=== PATIENT | male | born 1955 | race Hispanic/Latino ===

== ENCOUNTER 2017-03-17 10:32 | Emergency (ER) | payer MEDICAID ==
[2017-03-17 12:19] VITALS: BP 107/59
[2017-03-17] MEDS ORDERED: DUONEB *Not for PRN Use IH ONE (12:26)
--- NOTE | 2017-03-17 12:31 | Emergency Department Report ---
Chief Complaint: Upper Respiratory Infection Stated Complaint: FLU LIKE SYMPTOMS Time Seen by Provider: 03/17/17 12:28 - HPI History of Present Illness: Patient with H/O COPD presents to ED with c/o productive cough, post-tussive emesis, SOB, wheezing, subjective fevers, body aches and weakness for the past 5 days; hasn't had his inhalers in years, denies being on home oxygen; current smoker; denies CP - ROS Review of Systems: Negative except for those stated in HPI - Exam Vital Signs: Vital Signs 03/17/17 12:16 Temperature 99 F Pulse Rate 98 H Respiratory 24 Rate Blood Pressure 107/59 O2 Sat by Pulse 91 Oximetry Physical Exam: NAD RRR Bilateral inspiratory and expiratory wheezes present MSE screening note: Focused history and physical exam performed. Due to findings the following was ordered: CXR, bloodwork Patient to be seen by provider in Main ED ED Disposition for MSE Condition: Stable
[2017-03-17 12:42] LABS: Basophils % (Auto) 0.4 % (0.0-1.8); Eosinophils % (Auto) 0.9 % (0.0-4.3); Hematocrit 43.5 % (35.5-45.6); Hemoglobin 14.6 gm/dl (11.8-15.2); Mean Corpuscular HGB Conc 34 % (32-34); Mean Corpuscular Hemoglobin 32 pg (28-32); Mean Corpuscular Volume 94 fl (84-94); Platelet Count 228 K/mm3 (140-440); Red Blood Count 4.61 M/mm3 (3.65-5.03); Red Cell Distribution Width 13.6 % (13.2-15.2); White Blood Count 13.6 K/mm3 (4.5-11.0)
--- NOTE | 2017-03-17 12:50 | XRay Report ---
ROUTINE CHEST, TWO VIEWS: HISTORY: Short of breath. The trachea, heart, mediastinal contour, lung wetzel and bony thorax are unremarkable. IMPRESSION: Unremarkable chest x-ray.
[2017-03-17 13:06] LABS: Anion Gap 20 mmol/L; BUN/Creatinine Ratio 13; Blood Urea Nitrogen 10 mg/dL (9-20); Calcium 8.9 mg/dL (8.4-10.2); Carbon Dioxide 23 mmol/L (22-30); Chloride 97.9 mmol/L (98-107); Glucose 138 mg/dL (75-100); Potassium 4.2 mmol/L (3.6-5.0); Sodium 137 mmol/L (137-145)
== END 2017-03-17 12:30 ==
LOC: ED 10:32
DX: J11.1 Influenza due to unidentified influenza virus with other respiratory manifestations (principal); Z53.21 Procedure and treatment not carried out due to patient leaving prior to being seen by health care provider
CPT/HCPCS: 36415; 71020; 80048; 82140; 85025; 87040

== ENCOUNTER 2017-03-20 06:34 | Inpatient (IN) | payer MEDICAID ==
[2017-03-20] MEDS ORDERED: MAGNESIUM SULFATE 2GM/50ML 2 GM/50 ML BAG IV ONE (06:39)
[2017-03-20] MEDS ORDERED: NACL 0.9% 500 ML 500 ML IV ONE (06:39)
[2017-03-20] MEDS ORDERED: PROVENTIL IH ONE (06:39)
[2017-03-20] MEDS ORDERED: ATROVENT IH ONE (06:39)
--- NOTE | 2017-03-20 06:41 | Emergency Department Report ---
ED General Adult HPI - General Chief complaint: Dyspnea/Respdistress Stated complaint: COPD/TYLER Time Seen by Provider: 03/20/17 06:38 Source: patient, EMS (ems notes not available at time of chart dictation), RN notes reviewed, old records reviewed Mode of arrival: Stretcher Limitations: Physical Limitation - History of Present Illness Initial comments: This is a 61-year-old male with a probable history of COPD, who is brought to the hospital via EMS for probable COPD exacerbation. EMS reported that they gave Solu-Medrol, nitroglycerin in the field, however his IV infiltrated. They also started the patient on BiPAP. Upon arrival to the ER, the patient was in severe respiratory distress, and tripoding. He was continued on BiPAP therapy, given addition 10 mg of albuterol, 1 mg of Atrovent, 2 g of magnesium sulfate, 125 mg of Solu-Medrol. Patient also given epinephrine, 0.3 mg subcutaneously, 1:1000 concentration. His symptoms dramatically improved, he was able to be weaned off of the BiPAP, and transition to a Venturi mask. He denies headache, neck pain, chest pain, abdominal pain, he denies pulmonary embolus and DVT risk factors. Case was presented to the [facility]; she graciously accepted the patient to the medical service. -: Gradual Consistency: constant Improves with: medication Worsens with: movement Associated Symptoms: cough, loss of appetite, malaise, shortness of breath, weakness - Related Data Home Medications Medication Instructions Recorded Confirmed Last Taken No Known Home Medications [No 01/02/16 01/02/16 Unknown Reported Home Medications] Allergies Allergy/AdvReac Type Severity Reaction Status Date / Time Penicillins Allergy Hives Verified 01/02/16 13:56 ED Review of Systems ROS: Stated complaint: COPD/TYLER Other details as noted in HPI Comment: Unobtainable due to pts medical conditions ED Past Medical Hx - Past Medical History Hx COPD: Yes Additional medical history: GUILLAIN BARRE - Surgical History Additional Surgical History: RIGHT KNEE - Social History Smoking Status: Current Every Day Smoker Substance Use Type: None - Medications Home Medications: Home Medications Medication Instructions Recorded Confirmed Last Taken Type No Known Home Medications [No 01/02/16 01/02/16 Unknown History Reported Home Medications] ED Physical Exam - General General appearance: alert, in distress - Head Head exam: Present: atraumatic, normocephalic - Eye Eye exam: Present: normal appearance - ENT ENT exam: Present: normal exam, normal orophraynx, mucous membranes moist - Neck Neck exam: Present: normal inspection - Respiratory Respiratory exam: Present: respiratory distress, wheezes, rales, rhonchi - Cardiovascular Cardiovascular Exam: Present: regular rate, normal rhythm, normal heart sounds. Absent: systolic murmur, diastolic murmur, rubs, gallop - GI/Abdominal GI/Abdominal exam: Present: soft, normal bowel sounds. Absent: distended, tenderness, guarding, rebound, rigid, pulsatile mass - Rectal Rectal exam: Present: deferred - Extremities Exam Extremities exam: Present: normal inspection, full ROM, normal capillary refill. Absent: pedal edema, joint swelling, calf tenderness - Back Exam Back exam: Present: normal inspection, full ROM. Absent: tenderness, CVA tenderness (R), paraspinal tenderness, vertebral tenderness - Neurological Exam Neurological exam: Present: alert, other (Extraocular movements intact. Tongue midline. No facial droop. Facial sensation intact to light touch in the V1, V2 , V3 distribution bilaterally. 5 and 5 strength in 4 extremities.. Sensation is intact to light touch in 4 extremities.). Absent: motor sensory deficit - Psychiatric Psychiatric exam: Present: anxious - Skin Skin exam: Present: warm, dry, intact, normal color. Absent: rash ED Course Vital Signs 03/20/17 03/20/17 03/20/17 06:40 06:54 07:00 Temperature Pulse Rate 79 Pulse Rate [ Anterior Bilateral Throughout] Respiratory 24 20 Rate Respiratory Rate [Anterior Bilateral Throughout] Blood Pressure 125/69 125/69 O2 Sat by Pulse 96 96 98 Oximetry 03/20/17 03/20/17 03/20/17 07:10 08:00 08:23 Temperature 97.9 F Pulse Rate 74 73 Pulse Rate [ 75 Anterior Bilateral Throughout] Respiratory 30 H 20 Rate Respiratory 19 Rate [Anterior Bilateral Throughout] Blood Pressure 125/69 104/45 O2 Sat by Pulse 97 98 Oximetry - Reevaluation(s) Reevaluation #1: 03/20/17 09:14 Patient reassessed multiple times while in the department, his work of breathing improved, and his tripoding improved. ED Medical Decision Making - Lab Data Result diagrams: 03/20/17 06:50 03/20/17 06:50 Vital Signs 03/20/17 03/20/17 03/20/17 06:40 06:54 07:00 Temperature Pulse Rate 79 Pulse Rate [ Anterior Bilateral Throughout] Respiratory 24 20 Rate Respiratory Rate [Anterior Bilateral Throughout] Blood Pressure 125/69 125/69 O2 Sat by Pulse 96 96 98 Oximetry 03/20/17 03/20/17 03/20/17 07:10 08:00 08:23 Temperature 97.9 F Pulse Rate 74 73 Pulse Rate [ 75 Anterior Bilateral Throughout] Respiratory 30 H 20 Rate Respiratory 19 Rate [Anterior Bilateral Throughout] Blood Pressure 125/69 104/45 O2 Sat by Pulse 97 98 Oximetry Lab Results 03/20/17 03/20/17 03/20/17 Range/Units 06:50 06:50 06:50 WBC 12.1 H (4.5-11.0) K/mm3 RBC 4.27 (3.65-5.03) M/mm3 Hgb 13.4 (11.8-15.2) gm/dl Hct 39.6 (35.5-45.6) % MCV 93 (84-94) fl MCH 31 (28-32) pg MCHC 34 (32-34) % RDW 13.6 (13.2-15.2) % Plt Count 285 (140-440) K/mm3 Lymph % (Auto) 14.3 (13.4-35.0) % [place] % (Auto) 12.2 H (0.0-7.3) % Eos % (Auto) 1.9 (0.0-4.3) % Baso % (Auto) 0.2 (0.0-1.8) % Lymph # 1.7 (1.2-5.4) K/mm3 [place] # 1.5 H (0.0-0.8) K/mm3 Eos # 0.2 (0.0-0.4) K/mm3 Baso # 0.0 (0.0-0.1) K/mm3 Seg Neutrophils % 71.4 H (40.0-70.0) % Seg Neutrophils # 8.7 H (1.8-7.7) K/mm3 PT 13.3 (12.2-14.9) Sec. INR 0.96 (0.87-1.13) APTT 34.1 (24.2-36.6) Sec. POC ABG pH (7.35-7.45) POC ABG pCO2 (35-45) POC ABG pO2 (80-105) POC ABG HCO3 POC ABG Total CO2 POC ABG O2 Sat POC ABG Base Excess FiO2 % Sodium 144 D (137-145) mmol/L Potassium 4.1 (3.6-5.0) mmol/L Chloride 103.8 (98-107) mmol/L Carbon Dioxide 26 (22-30) mmol/L Anion Gap 18 mmol/L BUN 15 (9-20) mg/dL Creatinine 0.9 (0.8-1.5) mg/dL Estimated GFR > 60 ml/min BUN/Creatinine Ratio 17 % Glucose 136 H (75-100) mg/dL Lactic Acid (0.7-2.0) mmol/L Calcium 8.6 (8.4-10.2) mg/dL Magnesium 2.10 (1.7-2.3) mg/dL Total Bilirubin 0.30 (0.1-1.2) mg/dL AST 41 H (5-40) units/L ALT 71 H (7-56) units/L Alkaline Phosphatase 152 H (35-129) units/L Total Protein 6.8 (6.3-8.2) g/dL Albumin 3.2 L (3.9-5) g/dL Albumin/Globulin Ratio 0.9 % 03/20/17 03/20/17 Range/Units 06:50 08:10 WBC (4.5-11.0) K/mm3 RBC (3.65-5.03) M/mm3 Hgb (11.8-15.2) gm/dl Hct (35.5-45.6) % MCV (84-94) fl MCH (28-32) pg MCHC (32-34) % RDW (13.2-15.2) % Plt Count (140-440) K/mm3 Lymph % (Auto) (13.4-35.0) % [place] % (Auto) (0.0-7.3) % Eos % (Auto) (0.0-4.3) % Baso % (Auto) (0.0-1.8) % Lymph # (1.2-5.4) K/mm3 [place] # (0.0-0.8) K/mm3 Eos # (0.0-0.4) K/mm3 Baso # (0.0-0.1) K/mm3 Seg Neutrophils % (40.0-70.0) % Seg Neutrophils # (1.8-7.7) K/mm3 PT (12.2-14.9) Sec. INR (0.87-1.13) APTT (24.2-36.6) Sec. POC ABG pH 7.362 (7.35-7.45) POC ABG pCO2 47.0 H (35-45) POC ABG pO2 160 H (80-105) POC ABG HCO3 26.7 POC ABG Total CO2 28 POC ABG O2 Sat 99 POC ABG Base Excess 1 FiO2 45 % Sodium (137-145) mmol/L Potassium (3.6-5.0) mmol/L Chloride (98-107) mmol/L Carbon Dioxide (22-30) mmol/L Anion Gap mmol/L BUN (9-20) mg/dL Creatinine (0.8-1.5) mg/dL Estimated GFR ml/min BUN/Creatinine Ratio % Glucose (75-100) mg/dL Lactic Acid 1.50 (0.7-2.0) mmol/L Calcium (8.4-10.2) mg/dL Magnesium (1.7-2.3) mg/dL Total Bilirubin (0.1-1.2) mg/dL AST (5-40) units/L ALT (7-56) units/L Alkaline Phosphatase (35-129) units/L Total Protein (6.3-8.2) g/dL Albumin (3.9-5) g/dL Albumin/Globulin Ratio % - EKG Data EKG shows normal: sinus rhythm Rate: normal - EKG Data 03/20/17 09:13 Sinus, 84 bpm, normal axis, QTC prolonged, abnormal EKG, motion artifact, not morphologically consistent with ST elevation myocardial infarction, borderline left ventricular hypertrophy. - Radiology Data Radiology results: report reviewed, image reviewed X-ray the chest is negative for acute disease Critical Care Time: Yes Critical care time in (mins) excluding proc time.: 35 Critical care attestation.: If time is entered above; I have spent that time in minutes in the direct care of this critically ill patient, excluding procedure time. ED Disposition Clinical Impression: COPD exacerbation Disposition: DC-[id number] OP ADMIT IP TO THIS HOSP Is pt being admited?: Yes Condition: Good Instructions: Chronic Bronchitis (ED)
[2017-03-20] MEDS ORDERED: ADRENALINE P/F SUB-Q ONE (06:43)
[2017-03-20] MEDS ORDERED: LEVAQUIN 750MG/150ML 750 MG/150 ML BAG IV ONE (06:44)
--- NOTE | 2017-03-20 07:04 | XRay Report ---
FINAL REPORT EXAM: XR CHEST 1V AP HISTORY: Dyspnea TECHNIQUE: A portable upright view of the chest was submitted. There are no previous studies available for comparison. FINDINGS: Heart size and mediastinum appear normal. There are no localized infiltrates or effusions. The lungs are not overtly congested. There are EKG leads overlying the chest wall. The bones and soft tissues do not show any acute changes. IMPRESSION: No active chest disease.
[2017-03-20 07:15] LABS: Basophils % (Auto) 0.2 % (0.0-1.8); Eosinophils % (Auto) 1.9 % (0.0-4.3); Hematocrit 39.6 % (35.5-45.6); Hemoglobin 13.4 gm/dl (11.8-15.2); Mean Corpuscular HGB Conc 34 % (32-34); Mean Corpuscular Hemoglobin 31 pg (28-32); Mean Corpuscular Volume 93 fl (84-94); Platelet Count 285 K/mm3 (140-440); Red Blood Count 4.27 M/mm3 (3.65-5.03); Red Cell Distribution Width 13.6 % (13.2-15.2); White Blood Count 12.1 K/mm3 (4.5-11.0)
[2017-03-20 07:23] LABS: INR 0.96 (0.87-1.13)
[2017-03-20 07:24] LABS: Partial Thromboplastin Time 34.1 Sec. (24.2-36.6)
[2017-03-20 07:28] LABS: Alanine Aminotransferase 71 units/L (7-56); Albumin 3.2 g/dL (3.9-5); Albumin/Globulin Ratio 0.9 %; Alkaline Phosphatase 152 units/L (35-129); Anion Gap 18 mmol/L; BUN/Creatinine Ratio 17; Blood Urea Nitrogen 15 mg/dL (9-20); Calcium 8.6 mg/dL (8.4-10.2); Carbon Dioxide 26 mmol/L (22-30); Chloride 103.8 mmol/L (98-107); Glucose 136 mg/dL (75-100); Potassium 4.1 mmol/L (3.6-5.0); Sodium 144 mmol/L (137-145); Total Protein 6.8 g/dL (6.3-8.2)
[2017-03-20 08:14] LABS: ISTAT Base Excess 1; ISTAT HCO3 26.7; ISTAT PH 7.362 (7.35-7.45); ISTAT PO2 160 (80-105); ISTAT SO2 99; ISTAT TCO2 28
[2017-03-20] MEDS ORDERED: DULCOLAX PR PRN (09:17)
[2017-03-20] MEDS ORDERED: TYLENOL PO PRN (09:17)
[2017-03-20] MEDS ORDERED: PROVENTIL IH PRN (09:17)
--- NOTE | 2017-03-20 09:21 | History and Physical Report ---
<MARITZA DONAHUE - Last Filed: 03/20/17 15:05> History of Present Illness Date of examination: 03/20/17 Date of admission: 03/20/2017 Chief complaint: COPD exacerbation History of present illness: Patient is a 61 years old male with past medical history of COPD and Guillain barre who brought to the hospital by EMS for respiratory distress. Patient currently on continues BiPAP therefore unable to obtain detail history. Per physician and charts came to the Ed with patient was in severe respiratory distress, and tripoding unable. Patient found to have COPD exacerbation unable to protect his airway and placed on BiPAP.He is not on oxygen at home. No report of fevers, chills, or night sweats. No hx of recurrent pneumonia. He has no sick contact, TB exposure. Past History Past Medical History: COPD, other (Guillain barre ) Past Surgical History: Other (right knee) Social history: smoking, other (unable to obtain due to patient on continuous BiPAP). denies: alcohol abuse Family history: other (unable to obtain due to patient on continuous BiPAP) Medications and Allergies Allergies Allergy/AdvReac Type Severity Reaction Status Date / Time Penicillins Allergy Hives Verified 01/02/16 13:56 Home Medications Medication Instructions Recorded Confirmed Last Taken Type No Known Home Medications [No 01/02/16 03/20/17 Unknown History Reported Home Medications] Active Meds: Active Medications Acetaminophen (Tylenol) 650 mg PO Q4H PRN PRN Reason: Pain MILD(1-3)/Fever >100.5/PORTILLO Albuterol (Proventil) 2.5 mg IH Q4HRT PRN PRN Reason: Shortness Of Breath Albuterol/Ipratropium (Duoneb *Not For Prn Use*) 1 ampul IH Q6HRT [facility] Bisacodyl (Dulcolax) 10 mg CA QDAY PRN PRN Reason: Constipation unrelieved by MOM Enoxaparin Sodium (Lovenox) 40 mg SUB-Q QDAY [facility] Levofloxacin/Dextrose (Levaquin 750mg/150ml) 750 mg in 150 mls @ 100 mls/hr IV Q24HR TAYA PRN Reason: Protocol Methylprednisolone Sodium Succinate (Solu-Medrol) 80 mg IV Q8HR TAYA Review of Systems ROS unobtainable: due to mental status (unable to obtain due to patient on continuous BiPAP) Constitutional: weight loss Exam - Constitutional Vitals: Temp Pulse Resp BP Pulse Ox 97.9 F 75 19 104/45 98 03/20/17 07:10 03/20/17 08:23 03/20/17 08:23 03/20/17 08:00 03/20/17 08:00 General appearance: Present: no acute distress, other (On continuous BiPAP 45% with SPO2 >95) - EENT Eyes: Present: PERRL ENT: hearing intact - Neck Neck: Present: supple - Respiratory Respiratory effort: normal Respiratory: bilateral: rales, wheezing - Cardiovascular Rhythm: regular Heart Sounds: Present: S1 & S2 - Abdominal General gastrointestinal: Present: soft, non-tender - Musculoskeletal Musculoskeletal: strength equal bilaterally - Psychiatric Psychiatric: appropriate mood/affect - Neurologic Neurologic: moves all extremities - Allied Health Allied health notes reviewed: nursing Results - Labs CBC & Chem 7: 03/20/17 06:50 03/20/17 06:50 Labs: Laboratory Last Values WBC 12.1 K/mm3 (4.5-11.0) H 03/20/17 06:50 RBC 4.27 M/mm3 (3.65-5.03) 03/20/17 06:50 Hgb 13.4 gm/dl (11.8-15.2) 03/20/17 06:50 Hct 39.6 % (35.5-45.6) 03/20/17 06:50 MCV 93 fl (84-94) 03/20/17 06:50 MCH 31 pg (28-32) 03/20/17 06:50 MCHC 34 % (32-34) 03/20/17 06:50 RDW 13.6 % (13.2-15.2) 03/20/17 06:50 Plt Count 285 K/mm3 (140-440) 03/20/17 06:50 Lymph % (Auto) 14.3 % (13.4-35.0) 03/20/17 06:50 [place] % (Auto) 12.2 % (0.0-7.3) H 03/20/17 06:50 Eos % (Auto) 1.9 % (0.0-4.3) 03/20/17 06:50 Baso % (Auto) 0.2 % (0.0-1.8) 03/20/17 06:50 Lymph # 1.7 K/mm3 (1.2-5.4) 03/20/17 06:50 [place] # 1.5 K/mm3 (0.0-0.8) H 03/20/17 06:50 Eos # 0.2 K/mm3 (0.0-0.4) 03/20/17 06:50 Baso # 0.0 K/mm3 (0.0-0.1) 03/20/17 06:50 Seg Neutrophils % 71.4 % (40.0-70.0) H 03/20/17 06:50 Seg Neutrophils # 8.7 K/mm3 (1.8-7.7) H 03/20/17 06:50 PT 13.3 Sec. (12.2-14.9) 03/20/17 06:50 INR 0.96 (0.87-1.13) 03/20/17 06:50 APTT 34.1 Sec. (24.2-36.6) 03/20/17 06:50 POC ABG pH 7.362 (7.35-7.45) 03/20/17 08:10 POC ABG pCO2 47.0 (35-45) H 03/20/17 08:10 POC ABG pO2 160 (80-105) H 03/20/17 08:10 POC ABG HCO3 26.7 03/20/17 08:10 POC ABG Total CO2 28 03/20/17 08:10 POC ABG O2 Sat 99 03/20/17 08:10 POC ABG Base Excess 1 03/20/17 08:10 FiO2 45 % 03/20/17 08:10 Sodium 144 mmol/L (137-145) D 03/20/17 06:50 Potassium 4.1 mmol/L (3.6-5.0) 03/20/17 06:50 Chloride 103.8 mmol/L (98-107) 03/20/17 06:50 Carbon Dioxide 26 mmol/L (22-30) 03/20/17 06:50 Anion Gap 18 mmol/L 03/20/17 06:50 BUN 15 mg/dL (9-20) 03/20/17 06:50 Creatinine 0.9 mg/dL (0.8-1.5) 03/20/17 06:50 Estimated GFR > 60 ml/min 03/20/17 06:50 BUN/Creatinine Ratio 17 % 03/20/17 06:50 Glucose 136 mg/dL (75-100) H 03/20/17 06:50 Lactic Acid 1.50 mmol/L (0.7-2.0) 03/20/17 06:50 Calcium 8.6 mg/dL (8.4-10.2) 03/20/17 06:50 Magnesium 2.10 mg/dL (1.7-2.3) 03/20/17 06:50 Total Bilirubin 0.30 mg/dL (0.1-1.2) 03/20/17 06:50 AST 41 units/L (5-40) H 03/20/17 06:50 ALT 71 units/L (7-56) H 03/20/17 06:50 Alkaline Phosphatase 152 units/L (35-129) H 03/20/17 06:50 Total Protein 6.8 g/dL (6.3-8.2) 03/20/17 06:50 Albumin 3.2 g/dL (3.9-5) L 03/20/17 06:50 Albumin/Globulin Ratio 0.9 % 03/20/17 06:50 - Imaging and Cardiology Chest x-ray: image reviewed (unremarkable ) Assessment and Plan Assessment and plan: Patient is a 61 years old male with past medical history of COPD and Guillain barre who brought to the hospital by EMS for respiratory distress. Acute respiratory failure with hypoxia Oxygen saturation improved with BiPAP. Currently on 45% continuous BiPAP with Spo2 of 95%.No acute respiratory distress noted. Aggressive Nebulizers/Inhalers ABG when necessary Supportive care Acute COPD exacerbation Continue on Duoneb every 6 hours IV steroid Solumedrol Initiated empiric IV Levaquin Oxygen as necessary Hypertensive urgency Hold home antihypertensive medications for now IV hydralazin for SBP>160 Closely monitor blood pressure Malnutrition Nutrition consult Transaminitis Closely monitor the liver function Leukocytosis Reactive no source of infection Repeat CBC in the morning Tobacoo abuse Smoking cessation counseling done. Patient is strongly advised to quit. DVT prophylaxis Heparin Advance Directives: Yes VTE prophylaxis?: Chemical Contraindication Mechanical VTE Prophylaxis: Treatment Not Indicated Plan of care discussed with patient/family: Yes <CRISTHIAN BOGGS - Last Filed: 03/20/17 23:31> History of Present Illness Date of admission: 03/20/17 09:17 Medications and Allergies Active Meds: Active Medications Acetaminophen (Tylenol) 650 mg PO Q4H PRN PRN Reason: Pain MILD(1-3)/Fever >100.5/PORTILLO Last Admin: 03/20/17 21:45 Dose: 650 mg Albuterol (Proventil) 2.5 mg IH Q4HRT PRN PRN Reason: Shortness Of Breath Albuterol/Ipratropium (Duoneb *Not For Prn Use*) 1 ampul IH Q6HRT [facility] Last Admin: 03/20/17 19:37 Dose: 1 ampul Bisacodyl (Dulcolax) 10 mg CA QDAY PRN PRN Reason: Constipation unrelieved by MOM Enoxaparin Sodium (Lovenox) 40 mg SUB-Q QDAY [facility] Last Admin: 03/20/17 10:40 Dose: 40 mg Levofloxacin/Dextrose (Levaquin 750mg/150ml) 750 mg in 150 mls @ 100 mls/hr IV Q24HR TAYA PRN Reason: Protocol Methylprednisolone Sodium Succinate (Solu-Medrol) 80 mg IV Q8HR [facility] Last Admin: 03/20/17 21:44 Dose: 80 mg Nicotine (Habitrol) 21 mg TD QDAY [facility] Last Admin: 03/20/17 15:47 Dose: 21 mg Exam - Constitutional Vitals: Temp Pulse Resp BP Pulse Ox 98.7 F 106 H 22 149/62 97 03/20/17 20:18 03/20/17 20:18 03/20/17 20:18 03/20/17 20:18 03/20/17 20:18 Results - Labs CBC & Chem 7: 03/20/17 06:50 03/20/17 06:50 Labs: Laboratory Last Values WBC 12.1 K/mm3 (4.5-11.0) H 03/20/17 06:50 RBC 4.27 M/mm3 (3.65-5.03) 03/20/17 06:50 Hgb 13.4 gm/dl (11.8-15.2) 03/20/17 06:50 Hct 39.6 % (35.5-45.6) 03/20/17 06:50 MCV 93 fl (84-94) 03/20/17 06:50 MCH 31 pg (28-32) 03/20/17 06:50 MCHC 34 % (32-34) 03/20/17 06:50 RDW 13.6 % (13.2-15.2) 03/20/17 06:50 Plt Count 285 K/mm3 (140-440) 03/20/17 06:50 Lymph % (Auto) 14.3 % (13.4-35.0) 03/20/17 06:50 [place] % (Auto) 12.2 % (0.0-7.3) H 03/20/17 06:50 Eos % (Auto) 1.9 % (0.0-4.3) 03/20/17 06:50 Baso % (Auto) 0.2 % (0.0-1.8) 03/20/17 06:50 Lymph # 1.7 K/mm3 (1.2-5.4) 03/20/17 06:50 [place] # 1.5 K/mm3 (0.0-0.8) H 03/20/17 06:50 Eos # 0.2 K/mm3 (0.0-0.4) 03/20/17 06:50 Baso # 0.0 K/mm3 (0.0-0.1) 03/20/17 06:50 Seg Neutrophils % 71.4 % (40.0-70.0) H 03/20/17 06:50 Seg Neutrophils # 8.7 K/mm3 (1.8-7.7) H 03/20/17 06:50 PT 13.3 Sec. (12.2-14.9) 03/20/17 06:50 INR 0.96 (0.87-1.13) 03/20/17 06:50 APTT 34.1 Sec. (24.2-36.6) 03/20/17 06:50 POC ABG pH 7.362 (7.35-7.45) 03/20/17 08:10 POC ABG pCO2 47.0 (35-45) H 03/20/17 08:10 POC ABG pO2 160 (80-105) H 03/20/17 08:10 POC ABG HCO3 26.7 03/20/17 08:10 POC ABG Total CO2 28 03/20/17 08:10 POC ABG O2 Sat 99 03/20/17 08:10 POC ABG Base Excess 1 03/20/17 08:10 FiO2 45 % 03/20/17 08:10 Sodium 144 mmol/L (137-145) D 03/20/17 06:50 Potassium 4.1 mmol/L (3.6-5.0) 03/20/17 06:50 Chloride 103.8 mmol/L (98-107) 03/20/17 06:50 Carbon Dioxide 26 mmol/L (22-30) 03/20/17 06:50 Anion Gap 18 mmol/L 03/20/17 06:50 BUN 15 mg/dL (9-20) 03/20/17 06:50 Creatinine 0.9 mg/dL (0.8-1.5) 03/20/17 06:50 Estimated GFR > 60 ml/min 03/20/17 06:50 BUN/Creatinine Ratio 17 % 03/20/17 06:50 Glucose 136 mg/dL (75-100) H 03/20/17 06:50 Lactic Acid 1.50 mmol/L (0.7-2.0) 03/20/17 06:50 Calcium 8.6 mg/dL (8.4-10.2) 03/20/17 06:50 Magnesium 2.10 mg/dL (1.7-2.3) 03/20/17 06:50 Total Bilirubin 0.30 mg/dL (0.1-1.2) 03/20/17 06:50 AST 41 units/L (5-40) H 03/20/17 06:50 ALT 71 units/L (7-56) H 03/20/17 06:50 Alkaline Phosphatase 152 units/L (35-129) H 03/20/17 06:50 Total Protein 6.8 g/dL (6.3-8.2) 03/20/17 06:50 Albumin 3.2 g/dL (3.9-5) L 03/20/17 06:50 Albumin/Globulin Ratio 0.9 % 03/20/17 06:50 Urine Color Yellow (Yellow) 03/20/17 12:52 Urine Turbidity Clear (Clear) 03/20/17 12:52 Urine pH 5.0 (5.0-7.0) 03/20/17 12:52 Ur Specific [place] > 1.059 (1.003-1.030) H 03/20/17 12:52 Urine Protein <15 mg/dl mg/dL (Negative) 03/20/17 12:52 Urine Glucose (UA) >=500 mg/dL (Negative) 03/20/17 12:52 Urine Ketones Neg mg/dL (Negative) 03/20/17 12:52 Urine Blood Neg (Negative) 03/20/17 12:52 Urine Nitrite Neg (Negative) 03/20/17 12:52 Urine Bilirubin Neg (Negative) 03/20/17 12:52 Urine Urobilinogen 2.0 mg/dL (<2.0) 03/20/17 12:52 Ur Leukocyte Esterase Neg (Negative) 03/20/17 12:52 Urine WBC (Auto) 1.0 /HPF (0.0-6.0) 03/20/17 12:52 Urine RBC (Auto) 1.0 /HPF (0.0-6.0) 03/20/17 12:52 U Epithel Cells (Auto) < 1.0 /HPF (0-13.0) 03/20/17 12:52 Urine Mucus Few /HPF 03/20/17 12:52 Hepatitis A IgM Ab Non-reactive (NonReactive) 03/20/17 15:26 Hep Bs Antigen Non-reactive (Negative) 03/20/17 15:26 Hep B Core IgM Ab Non-reactive (NonReactive) 03/20/17 15:26 Hepatitis C Antibody Non-reactive (NonReactive) 03/20/17 15:26 Assessment and Plan Assessment and plan: I saw and evaluated the patient. I agree with the findings and the plan of care as documented in the Nurse Practitioner's~note, with the following corrections and additions. see my event note
[2017-03-20] MEDS ORDERED: LOVENOX SUB-Q ONE (10:38)
[2017-03-20] MEDS: LOVENOX SUB-Q SCH (10:40)
[2017-03-20 13:26] LABS: Bilirubin,Urine NEG (Negative); Blood,Urine NEG (Negative); Ketones,Urine NEG (Negative); Leukocyte Esterase,Urine NEG (Negative); Mucus,Urine FEW /HPF; Nitrite,Urine NEG (Negative); Protein,Urine <15 mg/dL mg/dL (Negative)
[2017-03-20] MEDS: DUONEB *Not for PRN Use IH SCH ×2 (13:45→19:37)
--- NOTE | 2017-03-20 14:06 | Cat Scan Report ---
CT ABDOMEN AND PELVIS WITH CONTRAST INDICATION: Right lower quadrant pain. COMPARISON: None similar. FINDINGS: Abdomen and pelvis CT performed following oral contrast and intravenous administration of 100 cc of Omnipaque 300. LUNG BASES: Subtle interstitial nodularity/infiltrates noted in both lower lobes medially as on axial series 2, images 16-50, amongst others. Slight lingular and right middle lobe scarring. No effusions. Nonspecific distal esophageal wall prominence/thickening, not excluded for gastroesophageal reflux and/or hiatal hernia, amongst others. ABDOMEN: Liver, spleen, gallbladder, pancreas, IVC and kidneys within normal limits. Mild nonspecific bilateral perinephric stranding however. Few indeterminate renal cortical hypodensities measuring up to 7 mm on the right, axial image 160, series 4. Mild adrenal nodularity at the apices, approximately 9 mm on the right, axial image 109, series 2. Nonaneurysmal abdominal aorta with atherosclerotic aortoiliac calcifications. No size significant mesenteric or retroperitoneal lymphadenopathy with few small, subcentimeter lymph nodes. No ascites. Opacified GI tract nonobstructive. Normal appendix. Stool throughout colon/possible constipation, greatest along the ascending colon. Small fat-containing umbilical hernia with a transverse neck of 8 mm. PELVIS: Grossly unremarkable urinary bladder and seminal vesicles. Slightly prominent prostate may be correlated for clinically and with PSA. Mild rectosigmoid stool. No free fluid or significant adenopathy. Multilevel spinal degenerative changes with greatest lower thoracic spine degenerative spurring. CONCLUSION: 1. Subtle bibasilar lower lobe nodular pulmonary interstitial infiltrates, presumed infectious/inflammatory, as described. 2. No acute abdomen or pelvic CT abnormality or definite explanation for patient's right lower quadrant pain with various other findings, including a normal appendix, as described. Please correlate. Thank you for the opportunity to participate in this patient's care.
--- NOTE | 2017-03-20 14:59 | Event Note ---
Date: 03/20/17 Full H/P to follow Patient seen and examined he reports shortness of breath as noted in the history and physical. She is currently off the BiPAP complete a full sentences although visibly short of breath. The patient is a 1 pack a day tobacco use for multiple years. Does not follow with a primary care physician. He denies any fever. COPD exacerbation Acute on chronic hypoxic respiratory failure SIRS secondary to COPD no evidence of sepsis Tobacco abuse Transaminitis Plan IV steroids and taper as needed. BiPAP standby Oxygen as needed Duo nebs We'll also start inhaled steroids and LABA in addition to YAHIR 15 mins counselling provided on need to quit tobacco, patient not commital at this time, will revisit on discharge DVT/GI prophy
[2017-03-20] MEDS: HABITROL TD SCH (15:47)
[2017-03-21] MEDS ORDERED: TESSALON PERLES PO PRN (00:56)
[2017-03-21] MEDS: DUONEB *Not for PRN Use IH SCH ×2 (02:14→08:26)
[2017-03-21 06:41] LABS: Red Blood Count 4.06 M/mm3 (3.65-5.03); White Blood Count 17.1 K/mm3 (4.5-11.0)
[2017-03-21 06:42] LABS: Hematocrit 37.6 % (35.5-45.6); Hemoglobin 12.6 gm/dl (11.8-15.2); Mean Corpuscular HGB Conc 33 % (32-34); Mean Corpuscular Hemoglobin 31 pg (28-32); Mean Corpuscular Volume 93 fl (84-94); Platelet Count 290 K/mm3 (140-440); Red Cell Distribution Width 13.8 % (13.2-15.2)
[2017-03-21 06:56] LABS: Anion Gap 20 mmol/L; BUN/Creatinine Ratio 23; Blood Urea Nitrogen 21 mg/dL (9-20); Carbon Dioxide 23 mmol/L (22-30); Chloride 103.1 mmol/L (98-107); Glucose 189 mg/dL (75-100); Potassium 4.2 mmol/L (3.6-5.0); Sodium 142 mmol/L (137-145)
[2017-03-21 07:53] LABS: Basophils % (Manual) 0 % (0.0-1.8); Blastocytes % (Manual) 0 %; Diff Status Complete; Eosinophils % (Manual) 0 % (0.0-4.3); Giant Platelets Rare; RBC Morphology Normal
[2017-03-21 08:33] VITALS: BP 122/79
[2017-03-21] MEDS ORDERED: LEVAQUIN 750MG/150ML 750 MG/150 ML BAG IV SCH (10:00)
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
--- NOTE | 2017-03-21 10:39 | Discharge Summary ---
Providers - Providers Date of Admission: 03/20/17 09:17 Attending physician: CRISTHIAN BOGGS MD Primary care physician: [employer]PORATE TRAVEL CONSULTANT Hospitalization Reason for admission: COPD EXACERBATION Condition: Fair Hospital course: SEE EVENT NOTE Disposition: DC- LEFT AGAINST MED ADVICE Core Measure Documentation - Palliative Care Palliative Care/ Comfort Measures: Not Applicable - Core Measures Any of the following diagnoses?: none - VTE Discharge Requirements Deep Vein Thrombosis/Pulmonary Embolism Present on Admission: No Exam - Constitutional Vitals: Temp Pulse Resp BP Pulse Ox 97.8 F 78 20 122/79 96 03/21/17 07:19 03/21/17 08:36 03/21/17 08:36 03/21/17 07:19 03/21/17 08:26 Plan Follow up with: KEYON GALLO MD [Primary Care Provider] - 3-5 Days
[2017-03-21] MEDS: HABITROL TD SCH (11:49)
[2017-03-21] MEDS: LOVENOX SUB-Q SCH (11:50)
== END 2017-03-21 10:40 | disposition left against medical advice (07) | DRG 189 ==
LOC: ED 06:34 → 3A 09:17
PROVIDERS: ADMIT Internal Medicine; ATTEND Internal Medicine
PROC: 4A033R1 Measurement of Arterial Saturation, Peripheral, Percutaneous Approach (ICD-10-PCS; principal; 2017-03-20)
PROC: 5A09357 Assistance with Respiratory Ventilation, Less than 24 Consecutive Hours, Continuous Positive Airway Pressure (ICD-10-PCS; 2017-03-20)
DX: J96.01 Acute respiratory failure with hypoxia (principal); J44.1 Chronic obstructive pulmonary disease with (acute) exacerbation; I16.0 Hypertensive urgency; E46 Unspecified protein-calorie malnutrition; Z68.25 Body mass index [BMI] 25.0-25.9, adult; R65.10 Systemic inflammatory response syndrome (SIRS) of non-infectious origin without acute organ dysfunction; Z88.0 Allergy status to penicillin; F17.200 Nicotine dependence, unspecified, uncomplicated
CPT/HCPCS: 36415; 71010; 71020; 74177; 80048; 80053; 80074; 81001; 82140; 82803; 83735; 85007; 85025; 85610; 85730; 87040; 87086; 93005; 93010; 94640; 94760; 96372; 96374; 99291; 99406; J0171; J1650; J1956; J2930; J3475; J7040; Q9967